=== PATIENT | female | born 1940 | race Caucasian/White ===

== ENCOUNTER → 2020-07-02 09:52 | Outpatient (BNVA) | payer MEDICARE, OTHER, SELFPAY | PROVIDERS: Referring Provider Dermatology; Visit Provider Dermatology | DX: Z12.83 Encounter for screening for malignant neoplasm of skin (principal); L57.0 Actinic keratosis; D22.9 Melanocytic nevi, unspecified; L82.1 Other seborrheic keratosis | CPT/HCPCS: 17000; 17003; 99203 ==

== ENCOUNTER → 2024-06-18 14:25 | Outpatient (BNVA) | payer MEDICARE, OTHER, SELFPAY | PROVIDERS: PCP Internal Medicine; Visit Provider Nurse Practitioner Family | DX: D48.5 Neoplasm of uncertain behavior of skin (principal); L57.0 Actinic keratosis; L82.0 Inflamed seborrheic keratosis; L65.0 Telogen effluvium; L82.1 Other seborrheic keratosis; L57.8 Other skin changes due to chronic exposure to nonionizing radiation; L81.4 Other melanin hyperpigmentation | CPT/HCPCS: 11102; 17000; 17110; 99203 ==

== ENCOUNTER 2024-09-24 13:11 | Outpatient (CLI) | payer MEDICARE, OTHER, SELFPAY ==
--- NOTE | 2024-09-24 13:17 | XRR_ITS ---
PROCEDURE INFORMATION: Exam: XR Bilateral Hips Exam date and time: 09/24/2024 1:27 PM Age: 84 years old Clinical indication: Hip pain; Bilateral; Additional info: Muscle cramps, to include pelvis TECHNIQUE: Imaging protocol: Radiologic exam of the bilateral hips. Views: 2 views of hips with pelvis when performed. COMPARISON: No relevant prior studies available. FINDINGS: Bones/joints: Normal anatomic alignment. The bone density is normal for this patient's age. Prominent calcifications in the superior left femoroacetabular joint, very suspicious for calcific tendinopathy. Prominent calcifications in the superior right femoroacetabular joint, also suspicious for calcific tendinopathy. No acutely displaced fractures. No joint dislocation. No aggressive osseous lesions. 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 Soft tissues: No acute soft tissue findings. XR/XR hip BI 2V wo/w pel [id number] IMPRESSION: 1. No acute fracture or dislocation. 2. Degenerative changes detailed above.
== END 2024-09-24 13:12 | disposition home or self-care (01) ==
LOC: RAD 13:14
PROVIDERS: PCP Internal Medicine; Visit Provider Internal Medicine
DX: M25.851 Other specified joint disorders, right hip (principal); R25.2 Cramp and spasm
CPT/HCPCS: 73521